=== PATIENT | female | born 1995 | race Hispanic/Latino ===

== ENCOUNTER 2022-10-02 12:56 | Emergency (ER) | payer OTHER ==
[2022-10-02] MEDS ORDERED: Ondansetron PF 4 MG/2 ML Vial ONE (13:58)
[2022-10-02 16:25] LABS: Bilirubin Large (Negative); Blood, Urine Negative (Negative); Clarity Cloudy (Clear); Glucose, Urine (Dipstick) 100 mg/dL (Negative); Ketone, Urine 15 mg/dL (Negative); Leukocyte Negative (Negative); Nitrite Positive (Negative); Protein, Urine (Dipstick) 100 mg/dL (Neg-Trace); Specific Gravity, Urine 1.015 (1.005-1.030); pH, Urine 8.5 (5.0-9.0)
[2022-10-02 16:26] LABS: Bacteria/HPF 3+ HPF (None Seen); Mucous/LPF 1+ LPF (<2+); RBC/HPF 0-3 HPF (0-3); WBC/HPF 0-3 HPF (0-3)
== END 2022-10-02 15:19 | disposition home or self-care (01) ==
LOC: BURERS 12:56
DX: A05.9 Bacterial foodborne intoxication, unspecified (principal); R11.2 Nausea with vomiting, unspecified
CPT/HCPCS: 81003; 81015; 96374; J2405

== ENCOUNTER 2022-10-05 14:54 | Emergency (ER) | payer OTHER ==
[~2022-10-05 14:54] MED LIST: Iopamidol 370 76% 100 ML VIAL ONE
[2022-10-05 15:57] LABS: Bilirubin Large (Negative); Blood, Urine Negative (Negative); Clarity Slightly Cloudy (Clear); Glucose, Urine (Dipstick) Negative (Negative); Ketone, Urine 15 mg/dL (Negative); Leukocyte Trace (Negative); Nitrite Negative (Negative); Protein, Urine (Dipstick) Negative (Neg-Trace); Urobilinogen 0.2 mg/dL (Less than 2); pH, Urine 5.5 (5.0-9.0)
[2022-10-05 15:59] LABS: Pregnancy Test - Urine (BHCG) Negative (Negative); Pregu Control Background? CLEAR/WHITE (CLR/WHITE); Pregu Control Bar Appear? YES (CONTROL BAR); Specific Gravity 1.015 (1.002-1.036)
[2022-10-05] MEDS ORDERED: Ketorolac Tromethamine 60 MG/2 ML VIAL ONE (16:02)
[2022-10-05] MEDS ORDERED: Ondansetron PF 4 MG/2 ML Vial ONE (16:02)
[2022-10-05 16:05] LABS: #Lymphocytes 1.9 thou/uL (1.20-3.40); #Monocytes 0.5 thou/uL (0.11-0.59); #Neutrophils 4.2 thou/uL (1.40-6.50); %Basophils 0.6 % (0.0-1.0); %Eosinophils 0.5 % (0.0-10.0); %Lymphocytes 28.9 % (21.0-51.0); %Monocytes 6.8 % (0.0-10.0); %Neutrophils 63.2 % (42.0-75.0); Hemoglobin 12.6 g/dL (12.0-16.0); Mean Corpuscular HGB CONC 33.5 g/dL (32.0-36.0); Mean Corpuscular Hemoglobin 28.6 pg (27.0-31.0); Mean Corpuscular Volume 85.2 fl (78.0-98.0); Mean Platelet Volume 8.8 fL (7.4-10.4); Platelet Count 277 10x3/uL (130-400); RBC Distribution Width 12.9 % (11.5-14.5); Red Blood Cell (RBC) Count 4.43 mill/uL (4.20-5.40); White Blood Cell (WBC) Count 6.7 10x3/uL (4.8-10.8)
[2022-10-05] MEDS ORDERED: Ketorolac Tromethamine 30 MG/ML VIAL ONE (16:05)
[2022-10-05 16:13] LABS: Bacteria/HPF Rare-Few HPF (None Seen); Mucous/LPF Few LPF (<2+); RBC/HPF None Seen HPF (0-3); WBC/HPF 0-3 HPF (0-3)
[2022-10-05 16:31] LABS: ALT (SGPT) 278 U/L (8-55); AST (SGOT) 122 U/L (5-34); Albumin 4.4 g/dL (3.5-5.0); Alkaline Phosphatase 290 U/L (40-110); Anion Gap 13 mmol/L (10-20); BUN (Urea Nitrogen) 9 mg/dL (7.0-18.7); Bilirubin, Total 4.1 mg/dL (0.2-1.2); CK (CPK) 45 U/L (29-168); Calc. Creatinine Clearance 0 mL/min (70-130); Calcium 9.4 mg/dL (7.8-10.44); Carbon Dioxide 25 mmol/L (22-29); Chloride 105 mmol/L (98-107); Estimated GFR 123; Globulin 3.4 g/dL (2.4-3.5); Glucose 92 mg/dL (70-105); Lipase 24 U/L (8-78); Potassium 3.6 mmol/L (3.5-5.1); Protein, Total 7.8 g/dL (6.0-8.3); Sodium 139 mmol/L (136-145)
[2022-10-05] MEDS ORDERED: Piperacillin/Tazobactam 3.375 GM VIAL ONE (17:04)
[2022-10-05] MEDS ORDERED: Sodium Chloride 0.9% 100 ML ONE (17:06)
[2022-10-05 23:54] LABS: HBCM Index 0.09 S/CO (0-0.79); HBSAg Index 0.26 S/CO (0-0.99); Hep A IgM AB Non-Reactive (NonReactive); Hep A IgM S/CO 0.24 S/CO (0-0.79); Hep B Surf Ag Non-Reactive S/CO (NonReactive); Hep C IgG Ab Non-Reactive (NonReactive); Hep C Index 0.11 S/CO (0-0.79); Hepatitis B Core IgM Abs Non-Reactive (NonReactive)
== END 2022-10-05 19:45 | disposition short-term general hospital (02) ==
LOC: BURERS 14:54
DX: K80.50 Calculus of bile duct without cholangitis or cholecystitis without obstruction (principal)
CPT/HCPCS: 74177; 80053; 80074; 81003; 81015; 81025; 82550; 83690; 85025; 96374; 96375; J1885; J2405; J2543; J3490; Q9967

== ENCOUNTER 2024-02-15 19:50 | Emergency (ER) | payer OTHER ==
[2024-02-15] MEDS ORDERED: predniSONE 20 MG TAB ONE (20:36)
[2024-02-15] MEDS ORDERED: Ipratropium/Albuterol 3 ML NEB ONE (20:36)
== END 2024-02-15 20:55 | disposition home or self-care (01) ==
LOC: BURERS 19:50
DX: J06.9 Acute upper respiratory infection, unspecified (principal)
CPT/HCPCS: J7512; J7620